=== PATIENT | male | born 1955 | race Caucasian/White ===

== ENCOUNTER → 2017-03-09 | Day surgery (SDC) | payer BC ==
[2017-02-26 10:20] VITALS: Ht 177.8 cm; Wt 64.1 kg
[~2017-03-09] VITALS: Ht 177.8 cm; Wt 64.1 kg
[~2017-03-09] MED LIST: ATROPINE SULFATE 0.1 MG/ML 5ML SYR IV PRN; CETI10TA84 PO; EpHEDrine SULFATE INJ 50 MG/ML AMP IV PRN; IBUP-1428 PO; LEVA45AE INH; LIDOCAINE HCL 2% 2 ML VIAL (20MG/ML) ONE; MONT1TAB3 PO; PROPOFOL IV EMULSION 10 MG/ML 20 ML VIAL IV ONE; QVRINH80 INH; SODIUM CHLORIDE 0.9% 500ML 500 ML IV ONE; ZOLP5TAB6 PO
--- NOTE | 2017-03-09 13:47 | Endo History and Physical ---
History & Physical Date of Service: Mar 09, 2017. Chief Complaint: SCREENING FOR COLON CANCER Referring Physician: DR. GUNN History of Present Illness 61 yo CM who presents for screening colonoscopy. Past Surgical History Hx Cardiac Surgery: No Hx Internal Defibrillator: No Hx Pacemaker: No Hx Abdominal Surgery: No Hx of Implantable Prosthesis: No Hx Post-Op Nausea and Vomiting: No Hx Cancer Surgery: No Hx Thoracic Surgery: No Hx Orthopedic: No Hx Urinary Tract Surgery: No Family History None Social History Smoking Status: Never Smoker Hx Substance Use: No Hx Alcohol Use: Yes (1 GLASS WINE/DAY) Allergies Coded Allergies: Amoxicillin (Verified Allergy, Unknown, "I FEEL LIKE SHIT", 03/09/17) Clavulanic Acid (Verified Allergy, Unknown, "I FEEL LIKE SHIT", 03/09/17) Current Medications Reported Home Medications Medications Dose Route/Sig Max Daily Dose Days Date Category Motrin (Ibuprofen) 800 Mg Tab 800 Mg PO PRN 03/09/17 Reported Qvar (Beclomethasone Dip) 80 Mcg/Act Aer 1 Puff INH QAM PRN 02/26/17 Reported Levalbuterol Tartrate Hfa (Levalbuterol Tartrate) 45 Mcg/Act Aer 2 Puffs INH Q4H PRN 02/26/17 Reported Zolpidem Tartrate 5 Mg Tab 1 Tab PO HS 02/26/17 Reported Singulair (Montelukast Sodium) 10 Mg Tab 10 Mg PO QPM 02/26/17 Reported Zyrtec (Cetirizine HCl) 10 Mg Tab 10 Mg PO QPM 02/26/17 Reported Vital Signs Weight (Kilograms): 64.09 Height (Feet): 5 Height (Inches): 10 Date Time Temp Pulse Resp B/P (MAP) Pulse Ox O2 Delivery O2 Flow Rate FiO2 03/09/17 13:32 36.9 71 18 112/66 (81) 95 Room Air Physical Exam General Appearance: WD/WN, no apparent distress Respiratory/Chest: Auscultation: breath sounds normal Cardiovascular: Heart Auscultation: RRR Abdomen: Bowel Sounds: normal Inspection & Palpation: soft, non-distended, no tenderness, guarding & rebound Assessment and Plan Assessment: 61 yo CM who presents for screening colonoscopy. Plan: Proceed with colonoscopy.
--- NOTE | 2017-03-09 14:42 | Discharge Instructions ---
Endoscopy Patient Instructions Date / Procedure(s) Performed Mar 09, 2017. Colonoscopy Allergy Information Coded Allergies: Amoxicillin (Verified Allergy, Unknown, "I FEEL LIKE SHIT", 03/09/17) Clavulanic Acid (Verified Allergy, Unknown, "I FEEL LIKE SHIT", 03/09/17) Discharge Date / Findings Mar 09, 2017. Internal hemorrhoids Medication Instructions OK to resume all medications today as prescribed Reported Home Medications Medications Dose Route/Sig Max Daily Dose Days Date Category Motrin (Ibuprofen) 800 Mg Tab 800 Mg PO PRN 03/09/17 Reported Qvar (Beclomethasone Dip) 80 Mcg/Act Aer 1 Puff INH QAM PRN 02/26/17 Reported Levalbuterol Tartrate Hfa (Levalbuterol Tartrate) 45 Mcg/Act Aer 2 Puffs INH Q4H PRN 02/26/17 Reported Zolpidem Tartrate 5 Mg Tab 1 Tab PO HS 02/26/17 Reported Singulair (Montelukast Sodium) 10 Mg Tab 10 Mg PO QPM 02/26/17 Reported Zyrtec (Cetirizine HCl) 10 Mg Tab 10 Mg PO QPM 02/26/17 Reported Provider Instructions Activity Restrictions - No exercising or heavy lifting for 24 hours. - Do not drink alcohol the day of the procedure. - Do not drive a car or operate machinery until the day after the procedure. - Do not make any important decisions or sign important papers in 24 hours after the procedure. Following Day: - Return to full activity which may include returning to work/school. Diet Start your diet with liquids and light foods (jello, soup, juice, toast). Then eat your usual diet if not nauseated. Treatment For Common After Affects For mild abdominal pain, bloating, or excessive gas: - Rest - Eat lightly - Lie on right side Follow-Up Information Follow-up with DR. GUNN as scheduled Anesthesia Information What You Should Know You have had a procedure that required some medicine to reduce anxiety and discomfort. This treatment is called moderate sedation. After receiving the treatment, you may be sleepy, but you will be able to breathe on your own. The effects of the treatment may last for several hours. Follow these instructions along with Activity/Diet recommendations noted above: * Do NOT do anything where dizziness or clumsiness would be dangerous. * Rest quietly at home today, then you can be up and about tomorrow. * Have a responsible person stay with you the rest of today. * You may have had an I.V. today. If so, you may take the dressing off later today. Recommendations Call your doctor if: * Trouble breathing * Continuous vomiting for more than 24 hours * Temperature above 101 degrees * Severe abdominal pain or bloating * Pain not relieved by pain medicine ordered * There is increased drainage or redness from any incision * A large amount of rectal bleeding greater than 2-3 tablespoons. (If you had a polyp/s removed or have hemorrhoids, a small amount of blood - from the rectum is to be expected.) * You have any unanswered questions or concerns. IN THE EVENT OF A SERIOUS EMERGENCY, GO TO THE NEAREST EMERGENCY ROOM Your discharge instructions were prepared by provider Misael Hamilton. Patient Instructions Signature Page Bhupendra Josue Patient (or Guardian) Signature/Date: I have read and understand the instructions given to me by my caregivers. Caregiver/RN/Doctor Signature/Date: The above-named patient and/or guardian has received patient instructions on this date. + Original Patient Signature Page (only) stays with chart. Please make copy for patient.
--- NOTE | 2017-03-09 14:45 | GI REPORT ---
Procedure Date: 03/09/2017 1:58 PM Procedure: Colonoscopy Indications: Screening for colorectal malignant neoplasm Medicines: Monitored Anesthesia Care Complications: No immediate complications. Estimated Blood Loss: Estimated blood loss: none. Procedure: Pre-Anesthesia Assessment: - Prior to the procedure, a History and Physical was performed, and patient medications and allergies were reviewed. The patient's tolerance of previous anesthesia was also reviewed. The risks and benefits of the procedure and the sedation options and risks were discussed with the patient. All questions were answered, and informed consent was obtained. Prior Anticoagulants: The patient has taken no previous anticoagulant or antiplatelet agents. ASA Grade Assessment: II - A patient with mild systemic disease. After reviewing the risks and benefits, the patient was deemed in satisfactory condition to undergo the procedure. After I obtained informed consent, the scope was passed under direct vision. Throughout the procedure, the patient's blood pressure, pulse, and oxygen saturations were monitored continuously. The Scope was introduced through the anus and advanced to the terminal ileum. The colonoscopy was performed without difficulty. The patient tolerated the procedure well. The quality of the bowel preparation was good. The terminal ileum, ileocecal valve, appendiceal orifice, and rectum were photographed. Findings: The perianal and digital rectal examinations were normal. Non-bleeding internal hemorrhoids were found during retroflexion. The hemorrhoids were small. The exam was otherwise without abnormality. Impression: - Non-bleeding internal hemorrhoids. - The examination was otherwise normal. - No specimens collected. Recommendation: - Resume previous diet. - Continue present medications. - Repeat colonoscopy in 10 years for surveillance. - Return to primary care physician as previously scheduled. Misael Hamilton, 03/09/2017 2:44:52 PM This report has been signed electronically. Note Initiated On: 03/09/2017 1:58 PM I attest to the content of the Intraoperative Record and orders documented therein, exceptions below
--- NOTE | 2017-03-09 14:49 | Anesthesiology Progress Note ---
Anesthesia Post Op Note Date & Time Mar 09, 2017 at 14:49 Vital Signs Pain Intensity: 0 Vital Signs Past 12 Hours Date Time Temp Pulse Resp B/P (MAP) Pulse Ox O2 Delivery O2 Flow Rate FiO2 03/09/17 13:32 36.9 71 18 112/66 (81) 95 Room Air Notes Mental Status: alert / awake / arousable, participated in evaluation Pt Amnestic to Procedure: Yes Nausea / Vomiting: adequately controlled Pain: adequately controlled Airway Patency, RR, SpO2: stable & adequate BP & HR: stable & adequate Hydration State: stable & adequate Anesthetic Complications: no major complications apparent
[2017-03-09 15:14] VITALS: BP 101/62; PULSE 52; O2SAT 100
== END | disposition home or self-care (01) ==
LOC: C.GI 13:06
PROVIDERS: ATTEND Internal Medicine
DX: Z12.11 Encounter for screening for malignant neoplasm of colon (principal); K64.8 Other hemorrhoids; Z79.899 Other long term (current) drug therapy

== ENCOUNTER → 2017-04-08 | Outpatient (CLI) | payer BC ==
[~2017-04-08] MED LIST changes: -ATROPINE SULFATE 0.1 MG/ML 5ML SYR IV PRN; -EpHEDrine SULFATE INJ 50 MG/ML AMP IV PRN; -LIDOCAINE HCL 2% 2 ML VIAL (20MG/ML) ONE; -PROPOFOL IV EMULSION 10 MG/ML 20 ML VIAL IV ONE; -SODIUM CHLORIDE 0.9% 500ML 500 ML IV ONE
[2017-04-08 09:38] LABS: BASO % 0.5 %; BASO ABS # 0.03 K/uL (0-0.2); COMPLETE YES; EOS % 1.4 %; IG% 0.4 %; LYMPH % 36.6 %; LYMPH ABS # 2.04 K/uL (1.2-3.4); MEAN CELL VOLUME 97.8 fL (80-100); MEAN CORPUSCULAR HEMOGLOBIN 33.1 pg (25-34); MEAN CORPUSCULAR HGB CONC 33.9 g/dl (32-36); MEAN PLATELET VOLUME 10.7 fL (7.4-10.4); MONO % 8.3 %; NEUT % 52.8 %; PLATELET COUNT 155 K/uL (130-400); RED BLOOD COUNT 5.01 M/uL (4.7-6.1); WHITE BLOOD COUNT 5.57 K/uL (4.8-10.8)
[2017-04-08 09:53] LABS: ALT/SGPT 25 U/L (12-78); AST/SGOT 17 U/L (15-37); BLOOD UREA NITROGEN 21 mg/dl (7-18); BUN/CREATININE RATIO 16.2 (10-20); CALCIUM 8.7 mg/dl (8.5-10.1); CARBON DIOXIDE 29 mmol/L (21-32); CHLORIDE 102 mmol/L (98-107); CHOLESTEROL 204 mg/dl (0-200); GLUCOSE 76 mg/dl (70-99); POTASSIUM 4.6 mmol/L (3.5-5.1); SODIUM 138 mmol/L (136-145); TRIGLYCERIDES 136 mg/dl (0-150); VERY LOW DENSITY LIPOPROT CALC 27 mg/dl
[2017-04-08 09:58] LABS: URINE APPEARANCE CLEAR (CLEAR); URINE BILIRUBIN NEG (NEG); URINE COLOR YELLOW; URINE NITRITE NEG (NEG); URINE SPECIFIC GRAVITY 1.017 (1.000-1.030); UROBILINOGEN NEG (NEG)
[2017-04-08 10:03] LABS: ALB/GLOB RATIO 1.1 (0.9-2); ALKALINE PHOSPHATASE 40 U/L (45-117); CHOLESTEROL/HDL RATIO 3.2; HDL CHOLESTEROL 64 mg/dl; LDL CHOLESTEROL CALCULATED 113 mg/dl
[2017-04-08 10:07] LABS: MANUAL MICROSCOPIC REQUIRED? NO; REVIEW REQ? NO
== END | disposition home or self-care (01) ==
LOC: C.LAB1850 07:11
PROVIDERS: ATTEND Internal Medicine Pulmonary Disease
DX: Z00.00 Encounter for general adult medical examination without abnormal findings (principal); J30.1 Allergic rhinitis due to pollen